=== PATIENT | male | born 1985 | race Caucasian/White ===

== ENCOUNTER 2017-12-16 05:19 | Emergency (ER) | payer OTHER ==
--- NOTE | 2017-12-16 05:57 | C.PDOC ---
History Of Present Illness pt started taking zithromax and developed some burning, "pinching "mid epigastic pain. No f/c/n/v. tolerating po Time Seen by Provider: 12/16/17 05:57 Chief Complaint (Nursing): Abdominal Pain History Per: Patient History/Exam Limitations: no limitations Onset/Duration Of Symptoms: Hrs Current Symptoms Are (Timing): Still Present Context: Other (zithromax) Severity: Mild Pain Scale Rating Of: 3 Location Of Pain/Discomfort: Epigastric Radiation Of Pain To:: None Quality Of Discomfort: Sharp, Burning Associated Symptoms: denies: Fever, Chills, Nausea, Vomiting Exacerbating Factors: Food Alleviating Factors: None Last Bowel Movement: Yesterday Recent travel outside of the [place]: No Additional History Per: Patient Past Medical History Reviewed: Historical Data, Nursing Documentation, Vital Signs Vital Signs: Last Vital Signs Temp 98.3 F 12/16/17 05:28 Pulse 85 12/16/17 05:28 Resp 20 12/16/17 05:28 BP 126/85 12/16/17 05:28 Pulse Ox 97 12/16/17 06:13 Family History: States: No Known Family Hx - Social History Hx Alcohol Use: Yes Hx Substance Use: No Review Of Systems Constitutional: Negative for: Fever, Chills Eyes: Negative for: Redness ENT: Negative for: Throat Pain Cardiovascular: Negative for: Chest Pain Respiratory: Negative for: Shortness of Breath Gastrointestinal: Positive for: Abdominal Pain. Negative for: Nausea, Vomiting Musculoskeletal: Negative for: Back Pain Skin: Negative for: Rash Neurological: Negative for: Weakness Psych: Negative for: Anxiety Physical Exam - Physical Exam Appears: Non-toxic, No Acute Distress Skin: Warm, Dry Head: Normacephalic Eye(s): bilateral: Normal Inspection Oral Mucosa: Moist Throat: No Erythema Neck: Supple Chest: Symmetrical Cardiovascular: Rhythm Regular Respiratory: No Rales, No Rhonchi, No Wheezing Gastrointestinal/Abdominal: Soft, Tenderness (mild mid epigastric), No Distention, No Guarding, No Rebound Back: No CVA Tenderness Extremity: Normal ROM Extremity: Bilateral: Atraumatic Neurological/Psych: Oriented x3 Gait: Steady ED Course And Treatment O2 Sat by Pulse Oximetry: 97 Pulse Ox Interpretation: Normal Disposition Counseled Patient/Family Regarding: Studies Performed, Diagnosis - Disposition Disposition Time: 05:57 Condition: FAIR Forms: [facility] (Macedonian) - Clinical Impression Clinical Impression: Abdominal pain Physician Patient Turnover Patient Signed Over To: Hetal David Handoff Comments: pending labs abd disposition
[2017-12-16] MEDS ORDERED: Sodium Chloride 0.9% 1,000 ML IV ONE (06:19)
[2017-12-16] MEDS ORDERED: Sodium Chloride 0.9% 1,000 ML ONE (06:38)
[2017-12-16 06:39] LABS: BASO # 0.1 K/uL (0.0-0.2); BASO % 1.6 % (0.0-2.0); EOS # 0.3 K/uL (0.0-0.7); EOS % 5.9 % (0.0-4.0); HEMOGLOBIN 15.4 g/dL (12.0-18.0); LYMPH # 2.1 K/uL (1.0-4.3); LYMPH % 37.9 % (20.0-40.0); MEAN CELL VOLUME 90.2 fL (80.0-94.0); MEAN CORPUSCULAR HEMOGLOBIN 31.6 pg (27.0-31.0); MEAN PLATELET VOLUME 7.8 fL (7.2-11.7); MONO # 0.5 K/uL (0.0-0.8); NEUT # 2.5 K/uL (1.8-7.0); NEUT % 45.6 % (50.0-75.0); RBC 4.89 Mil/uL (4.40-5.90); RED CELL DISTRIBUTION WIDTH 12.2 % (11.5-14.5); WHITE BLOOD COUNT 5.6 K/uL (4.8-10.8)
[2017-12-16 06:40] LABS: URINE BILIRUBIN NEGATIVE (NEGATIVE); URINE BLOOD NEGATIVE (NEGATIVE); URINE CLARITY Clear (Clear); URINE COLOR Straw (YELLOW); URINE GLUCOSE (UA) NORMAL (Normal); URINE LEUKOCYTE ESTERASE NEG Leu/uL (Negative); URINE NITRATE NEGATIVE (NEGATIVE); URINE PROTEIN NEGATIVE (NEGATIVE); URINE UROBILINOGEN NORMAL mg/dL (0.2-1.0)
[2017-12-16 06:50] LABS: ALB/GLOB RATIO 1.4 (1.0-2.1); ALBUMIN 4.6 g/dL (3.5-5.0); ALT/SGPT 30 U/L (21-72); AST/SGOT 27 U/L (17-59); BLOOD UREA NITROGEN 8 mg/dL (9-20); CALCIUM 9.9 mg/dl (8.6-10.4); GFR AFRICAN-AMERICAN > 60; GFR NON-AFRICAN AMERICAN > 60; LIPASE 108 U/L (23-300)
[2017-12-16] MEDS ORDERED: Belladonna-Phenobarbital PO STA (08:49)
[2017-12-16] MEDS ORDERED: Aluminum Hydroxide/Magnesium Hydroxide Susp (30 mL) PO STA (08:49)
[2017-12-16] MEDS ORDERED: Aluminum Hydroxide/Magnesium Hydroxide Susp (30 mL) ONE (09:00)
[2017-12-16] MEDS ORDERED: Belladonna-Phenobarbital ONE (09:00)
[2017-12-16 10:18] VITALS: BP 122/87; PULSE 67; RESP 18; TEMP 98; O2SAT 99
== END 2017-12-16 10:20 | disposition home or self-care (01) ==
LOC: C.ER 05:19
DX: R10.13 Epigastric pain (principal)
CPT/HCPCS: 80053; 81001; 83690; 85025; 96361; 96374; 96376; 99284; J7040